=== PATIENT | female | born 1995 | race Caucasian/White ===

== ENCOUNTER 2016-06-16 15:57 | Emergency (ER) | payer BC, MEDICAID ==
[2016-06-16 16:04] VITALS: BP 113/74
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
== END 2016-06-16 17:31 | disposition home or self-care (01) ==
LOC: DL.ED 15:57
DX: J06.9 Acute upper respiratory infection, unspecified (principal); F17.210 Nicotine dependence, cigarettes, uncomplicated; Z88.1 Allergy status to other antibiotic agents; Z79.899 Other long term (current) drug therapy
CPT/HCPCS: 80305; 81001; 87081; 87430; 87804; 99283

== ENCOUNTER 2016-06-19 20:19 | Emergency (ER) | payer BC, MEDICAID ==
[2016-06-19 20:51] VITALS: BP 115/63
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
[2016-06-19] MEDS ORDERED: Polymyxin B/Trimethoprim 10 ML Bottle ONE (22:14)
[2016-06-19] MEDS ORDERED: Polymyxin B/Trimethoprim 10 ML Bottle EYERT ONE (22:14)
== END 2016-06-19 22:17 | disposition home or self-care (01) ==
LOC: DL.ED 20:19
DX: H10.31 Unspecified acute conjunctivitis, right eye (principal); Z98.890 Other specified postprocedural states; Z87.01 Personal history of pneumonia (recurrent); Z87.440 Personal history of urinary (tract) infections; Z88.1 Allergy status to other antibiotic agents
CPT/HCPCS: 99282; A9270

== ENCOUNTER 2016-10-02 16:05 | Inpatient (IN) | payer MEDICAID ==
[2016-10-02] MEDS ORDERED: Lactated Ringers 500 ML IV ONE (17:40)
[2016-10-02] MEDS ORDERED: Carboprost Tromethamine 250 MCG/1 ML Amp IM PRN (17:40)
[2016-10-02] MEDS ORDERED: Sodium Chloride 0.9% 10 ML Syringe FLUSH PRN (17:40)
[2016-10-02] MEDS ORDERED: Ondansetron 4 MG/2 ML SDV IV PRN (17:40)
[2016-10-02] MEDS ORDERED: Lidocaine 1% 30 ML SDV INJECT PRN (17:40)
[2016-10-02] MEDS ORDERED: Methylergonovine 0.2 MG/1 ML Amp IM PRN (17:40)
[2016-10-02] MEDS ORDERED: Misoprostol 400 MCG (4 X 100 MCG TAB) RECTAL PRN (17:40)
[2016-10-02] MEDS ORDERED: Oxytocin/Normal Saline 30 UNIT/500 ML BAG IV SCH (18:00)
[2016-10-02] MEDS: Lactated Ringers 1,000 ML IV SCH ×3 (19:43→22:16)
[2016-10-02] MEDS ORDERED: fentaNYL 100 MCG/2 ML SDV ONE (20:16)
[2016-10-02] MEDS ORDERED: ceFAZolin 2 GM in Premix Bag 1 BAG IV PRN (20:23)
--- NOTE | 2016-10-02 21:05 | PCM.PRNOTE ---
- Free Text/Narrative Note: Called to provide labor pain relief via intrathecal for this patient. WBC was 16.7 and temp was 99.6, so antibiotics (2 gms ancef I.V.) given as precaution prior to starting intrathecal. After consent signed and monitors on, proceeded. With patient in sitting position, sterile prep/drape. Skin wheal at L3-4 with 1% lidocaine. LP X 1 at L3-4 with 24 g pencan spinal needle via 20 gauge introducer. Positive, clear, free flowing CSF, no heme, no paresthesia. Then 6mg MPF hyperbaric 0.75% spinal marcaine, 20 mcg sufenta, 30 mcg fentanyl, 0.4ml preservative free normal saline and epi wash given intrathecally. Pt supine after. Maternal B/P and FHT's stable after. Block to around T-6, and patient reported pain relief with subsequent contractions.
[2016-10-03] MEDS ORDERED: fentaNYL 100 MCG/2 ML SDV IVPUSH ONE (00:21)
[2016-10-03] MEDS ORDERED: fentaNYL 100 MCG/2 ML SDV ONE (00:27)
[2016-10-03] MEDS ORDERED: Sodium Chloride 0.9% 10 ML Syringe FLUSH PRN (03:03)
[2016-10-03] MEDS ORDERED: Benzocaine/Menthol 20%-0.5% Spray 56 GM Canister TOP PRN (03:03)
[2016-10-03] MEDS ORDERED: Oxytocin 10 Units/1 ML SDV IM PRN (03:03)
[2016-10-03] MEDS ORDERED: Simethicone 80 MG Tab.Chew PO PRN (03:03)
[2016-10-03] MEDS ORDERED: Zolpidem 5 MG Tab PO PRN (03:03)
[2016-10-03] MEDS: Ibuprofen 800 MG Tab PO PRN ×3 (03:23→22:24)
[2016-10-03] MEDS: Docusate Sodium 100 MG Cap PO PRN ×2 (10:05→19:22)
[2016-10-03] MEDS: Prenatal Multivitamin with Calcium/Folic Acid/Iron Tab PO SCH (10:05)
--- NOTE | 2016-10-03 10:24 | OBOUT ---
DATE: 10/02/2016 DATE AND TIME OF NST: 1710 to 1730 hours. REASON FOR NST: 1. Intrauterine at 40 and 3/7th weeks, confirmed with 22 and 2/7th week ultrasound. 2. Active labor. 3. Rh negative. 4. GBS negative. 5. G2, P0-0-1-0. NST INTERPRETATION: During this time period, heart tone baseline is approximately 120, and there are at least two 15 x 15 beat per minute accelerations, making this strip reactive. It is also noted to be reassuring. Tocometer reveals potential of 6-7 contractions felt by patient. ASSESSMENT: 1. Non-stress test-reactive and reassuring. 2. Tocometer with contractions. PLAN: For admit history and physical details, please see Epic notes, which were done today as well as physical done in the clinic. Essentially, she was sent over for a nonstress test, was describing some contractions, now increasing in frequency and intensity to the point that they are coming every 2-3 minutes, felt in the lower abdomen and back, worsening over time. Nothing seems to make them better. She was subsequently evaluated in the clinic, found to be 2-1/2 to 3 cm, and after serial evaluation around this NST time was found to be 4-5 cm, 80% effaced, -1 station, vertex suspected with bulging bag of water. Artificial rupture of membranes done after discussion with the patient yielding copious amounts of clear fluid. We will continue to follow clinically and closely. For the history and physical records were called for, reviewed and supplemented by patient history, and review of systems was fully reviewed upon admission and felt to be otherwise noncontributory. Please see nurse's intake form for further details. [facility] /[id number]
--- NOTE | 2016-10-03 10:39 | PN ---
DATE: 10/02/2016 SUBJECTIVE: Patient is now status post intrathecal. She has been feeling some of her contractions occasionally. Pitocin was started as she was spacing out with her contractions after intrathecal. OBJECTIVE: heart tones in the 120s-130s range. Acceleration noted after vaginal exam. Tocometer reveals contractions every 2-4 minutes apart. Vaginal exam reveals her to be 7 cm, 100% effaced, 0 station, vertex suspected, with IUPC placed after discussion with the patient. ASSESSMENT/PLAN: Protracted disorder of dilation, now status post Pitocin augmentation and now with intrauterine pressure catheter to help monitor for sufficient enough contractions. The patient understands and agrees with the above treatment. PLAN: We will continue to follow clinically and closely. [facility] /[id number]
--- NOTE | 2016-10-03 10:54 | DEL ---
DATE: 10/03/2016 PREOPERATIVE DIAGNOSES: 1. Intrauterine 40 and 4/7 weeks confirmed with 22 and 2/7th weeks' ultrasound. 2. Active labor upon admission. 3. Rh negative. 4. Group B Streptococcus negative. 5. 2, para 0-0-0-1. 6. Protracted disorder dilation, requiring Pitocin and IUPC. 7. Repetitive variables and decelerations in the second stage of labor. POSTOPERATIVE DIAGNOSES: 1. Intrauterine 40 and 4/7 weeks confirmed with 22 and 2/7th weeks' ultrasound - delivered. 2. Active labor upon admission. 3. Rh negative. 4. Group B Streptococcus negative. 5. 2, para 0-0-0-1. 6. Protracted disorder dilation, requiring Pitocin IUPC. 7. Repetitive variables and decelerations in the second stage of labor. 8. Second degree perineal laceration - repaired. 9. Nuchal cord x1 reduced bluntly with delivery. 10.Meconium noted at delivery - thick. PROCEDURE PERFORMED: NST, artificial rupture of membranes, Pitocin, and IUPC on 10/02/2016, with continued Pitocin into 10/03/2016, when vacuum-assisted vaginal delivery was performed. Second-degree perineal laceration - repaired. ANESTHESIA/ANALGESIA: The patient did receive an intrathecal in the first stage of labor. She received 1% lidocaine without epinephrine, approximately 8 mL, for local with good anesthetic results. ESTIMATED BLOOD LOSS: 300 mL. FINDINGS: 1. Male, scores pending with weight 7 pounds 15 ounces. 2. Second-degree perineal laceration - repaired. 3. Nuchal cord x1, reduced bluntly with delivery. 4. Meconium noted at delivery and noted to be thick. SUMMER OF EVENTS: The patient is a 21-year-old, G2, P-0-0-1-0, intrauterine at 40 and 3/7th weeks on date of admission. As she was in active labor, underwent artificial rupture membranes and had protracted disorder dilation requiring Pitocin and IUPC placement. She received an intrathecal in the first stage of labor. She subsequently progressed into the second stage of labor, was having the urge to push and pain with contractions. She started pushing with contraction. During this time of period, there were some repetitive and variable decelerations. The patient was requesting availability. Due to concerns of status, OR crew and Dr. Daniel were called in to be present for this, as well as Dr. Daniel to be present for baby if there are any concerns. Subsequently, the patient continued to push with her contractions, further descent was noted. After approximately 2 hours of pushing, the patient was noting some fatigue as well as repetitive variable and decelerations were noted. Subsequently, discussion ensued in regard to using Kiwi vacuum. I did discuss with her and her male partner and her mother risks, benefits, alternative of complications with the use of Kiwi vacuum. They understood and agreed and wished to proceed. Verbal consent was obtained. Subsequently with the next episode of pushing with vertex seen splitting the labia, Kiwi vacuum was applied. When the patient was not pushing and when she was not having contractions, suction was let down to the yellow zone. When she was pushing with contractions, it was pumped to the green and with gentle pulling pressure while the patient was pushing with contractions, further descent was noted. A few more contractions thereafter, vertex was delivered. Vacuum was disengaged. Nuchal cord x1 was noted and reduced bluntly with CRISTO presentation. The anterior and posterior shoulder as well as the rest of the delivered thereafter without difficulty. Vigorous cry was noted with thick meconium noted right after delivery of the . Mouth and nares were suctioned. Cord was doubly clamped cut, and infant was brought over to team. Then, approximately 10 mL of cord blood was obtained for labs. Placenta then delivered with gentle cord traction and fundal massage within 5 to 10 minutes. Perineum, vagina, and perirectal areas were then examined, noted to have a second-degree perineal laceration that was anesthetized and repaired in the usual fashion using 3-0 Vicryl. Bilateral periurethral abrasions, nonbleeding, non-repaired after discussion with the patient, were noted. Mother and are currently stable at time of dictation. [facility] /[id number]
--- NOTE | 2016-10-03 12:59 | PCM.POSTAN ---
POST ANESTHESIA ASSESSMENT - MENTAL STATUS Mental Status: alert - VITAL SIGNS Pulse Rate: 81 Resp Rate: 16 Blood Pressure: 107/55 Temperature: 36.8 C - RESPIRATORY Respiratory Status: respiratory rate WNL - CARDIOVASCULAR CV Status: pulse rate WNL - GASTROINTESTINAL GI Status: no symptoms - PAIN Pain Score: 0 - POST OP HYDRATION Hydration Status: adequate & stable - OBSERVATIONS Free Text/Narrative:: Pt without c/o. No c/o PONV, no c/o PDPH. Full motor and sensory return. No post anesthesia complications noted.
[2016-10-03] MEDS ORDERED: fentaNYL 100 MCG/2 ML SDV ITHECAL ONE (13:14)
[2016-10-03] MEDS: Acetaminophen 325 MG Tab PO PRN (19:23)
[2016-10-04] MEDS: Prenatal Multivitamin with Calcium/Folic Acid/Iron Tab PO SCH (09:06)
[2016-10-04] MEDS: Ferrous Sulfate 325 MG Tab PO SCH (09:06)
[2016-10-04] MEDS: Ibuprofen 800 MG Tab PO PRN ×2 (09:06→18:06)
[2016-10-04] MEDS: Docusate Sodium 100 MG Cap PO PRN ×2 (09:06→21:14)
--- NOTE | 2016-10-04 09:27 | PN ---
DATE: 10/04/2016 day #1, status post vacuum-assisted vaginal delivery with second- degree perineal laceration - repaired. SUBJECTIVE: The patient is tolerating p.o., ambulating, urinating, passing flatus. OBJECTIVE: Vital Signs: Updated and listed in [employer]. No immediate concerns were noted. Lungs: Clear to auscultation bilaterally. Heart: S1 and S2. Regular rate and rhythm. Abdomen: Firm uterus +1 above umbilicus. Extremities: Trace pedal edema. No calf pain. Pending is a CBC. ASSESSMENT AND PLAN: day #1, status post vacuum-assisted vaginal delivery with second-degree perineal laceration - repaired. We will continue to follow clinically and closely. Possible discharge tomorrow discussed with the patient. She understands and agrees with the above treatment plan. [facility] /[id number]
[2016-10-04 20:34] VITALS: BP 111/57
[2016-10-04] MEDS: Acetaminophen 325 MG Tab PO PRN (21:14)
[2016-10-05] MEDS: Ibuprofen 800 MG Tab PO PRN (05:42)
[2016-10-05] MEDS: Acetaminophen 325 MG Tab PO PRN (11:15)
[2016-10-05] MEDS: Prenatal Multivitamin with Calcium/Folic Acid/Iron Tab PO SCH (11:15)
[2016-10-05] MEDS: Docusate Sodium 100 MG Cap PO PRN (11:16)
[2016-10-05] MEDS: Ferrous Sulfate 325 MG Tab PO SCH (11:16)
--- NOTE | 2016-10-06 09:54 | DISCH ---
ADMIT DIAGNOSES: 1. Intrauterine 40 and 3/7th weeks confirmed with 22 and 2/7th weeks' ultrasound. 2. Active labor. 3. Rh negative. 4. Group B Streptococcus negative. 5. 2, para 0-0-1-0. 6. Leukocytosis. DISCHARGE DIAGNOSES: 1. Intrauterine 40 and 4/7th weeks confirmed with 22 and 2/7th weeks' ultrasound-delivered. 2. Active labor. 3. Rh negative. 4. Group B Streptococcus negative. 5. 2, para 0-0-1-0. 6. Leukocytosis-resolved. 7. Protracted disorder dilation, requiring Pitocin and IUPC. 8. Repetitive variables and decelerations in the second stage of labor. 9. Second-degree perineal laceration-repaired. 10.Nuchal cord x1 reduced bluntly with delivery. 11.Meconium noted at delivery. 12. thrombocytopenia-resolved. 13.Anemia of acute blood loss, hemoglobin dropping from 11 down to 8.2 post delivery. PROCEDURE PERFORMED: NST, artificial rupture of membranes, Pitocin and IUPC on 10/02/2016, followed by vacuum-assisted vaginal delivery with second-degree perineal laceration repaired on 10/03/2016. Procedure performed by Mike Garcia MD. HISTORY OF PRESENT ILLNESS: Please see H and P. SUMMARY OF HOSPITAL COURSE: The patient was admitted on the above date with the above diagnoses, underwent above procedures. Had a protracted disorder dilation requiring Pitocin and IUPC. Found to be in the second stage of labor, had repetitive variables and decelerations and had been pushing for approximately 2 hours. Subsequently, vacuum-assisted vaginal delivery was done yielding a male with scores of 7 and 8, weighing 7 pounds 15 ounces with thick meconium noted at delivery with second-degree perineal laceration that was repaired. day #1, please see progress note. Postoperative day #2, date of discharge, the patient was tolerating p.o., ambulating, urinating, passing flatus, and requesting discharge. PHYSICAL EXAMINATION: Vital Signs: Last set of vitals updated and listed in the chart; temperature 97.6, heart rate 85, blood pressure 111/57, respiratory rate 16. Appearance: Wakes appropriately. Lungs: Clear to auscultation bilaterally. Heart: S1 and S2. Regular rate and rhythm. Abdomen: Firm uterus +1 below the umbilicus. Trace pedal edema. No calf pain. LABORATORY DATA: White cell count 8.5, hemoglobin 8.6, and platelets 158,000. CONDITION ON DISCHARGE COMPARED TO CONDITION ON ADMISSION: Improved. DISCHARGE INSTRUCTIONS: 1. Diet: As tolerated. 2. Activity: No lifting more than 10 to 20 pounds. No sit-ups, straining, and pelvic rest for next 6 weeks with immediate return to fertility discussed with the patient. 3. Reasons to return or go to the emergency room were discussed with the patient in detail including, but not limited to, temperature greater than 100.4, foul-smelling discharge, red, hot, tender breasts or increased vaginal bleeding. DISCHARGE MEDICATIONS: 1. [id number] Tylenol or ibuprofen for pain. 2. Iron sulfate 325 b.i.d. x6 weeks. FOLLOWUP: Follow up 6 weeks for visit. The patient understands and agrees with the above treatment plan. I did discuss with the patient the importance of followup and ramifications of not doing so and as well as reasons to return or go to the emergency in regard to her . [facility] /[id number]
== END 2016-10-05 11:45 | disposition home or self-care (01) | DRG 775 ==
LOC: DL.OBCHECK 16:05 → DL.OB 17:42 → UNDOADMOB 17:44 → DL.OB 17:44 → OBSVTOIN 10-03 02:34
PROVIDERS: ADMIT Family Medicine; ATTEND Family Medicine
PROC: 10D07Z6 Extraction of Products of Conception, Vacuum, Via Natural or Artificial Opening (ICD-10-PCS; principal; 2016-10-03)
PROC: 0KQM0ZZ Repair Perineum Muscle, Open Approach (ICD-10-PCS; 2016-10-03)
PROC: 4A1H7CZ Monitoring of Products of Conception, Cardiac Rate, Via Natural or Artificial Opening (ICD-10-PCS; 2016-10-03)
PROC: 3E033VJ Introduction of Other Hormone into Peripheral Vein, Percutaneous Approach (ICD-10-PCS; 2016-10-03)
DX: O76 Abnormality in fetal heart rate and rhythm complicating labor and delivery (principal); O66.5 Attempted application of vacuum extractor and forceps; O69.1XX0 Labor and delivery complicated by cord around neck, with compression, not applicable or unspecified; O77.0 Labor and delivery complicated by meconium in amniotic fluid; Z3A.40 40 weeks gestation of pregnancy; Z37.0 Single live birth
CPT/HCPCS: 01967; 36415; 51702; 85027; 85461; 86850; 86900; 86901; A9270-GY; J0690; J2405; J2590; J2790; J3010; J7120

== ENCOUNTER 2017-05-23 06:31 | Day surgery (SDC) | payer MEDICAID ==
[~2017-05-23 06:31] MED LIST: Dextrose 5%-0.45% NaCl 1,000 ML IV SCH; Midazolam 1 MG/ML 2 ML SDV ONE; Sodium Chloride 0.9% 10 ML Syringe FLUSH PRN; fentaNYL 100 MCG/2 ML SDV ONE
[2017-05-23] MEDS ORDERED: Midazolam 1 MG/ML 2 ML SDV IV ONE ×3 (06:32→06:58)
[2017-05-23] MEDS ORDERED: fentaNYL 100 MCG/2 ML SDV IV ONE ×3 (06:32→06:56)
--- NOTE | 2017-05-23 07:26 | OR ---
DATE: 05/23/2017 PROCEDURE: Esophagogastroduodenoscopy and multiple pinch biopsies. INSTRUMENT USED: GIF-Q180 Olympus video panendoscope. PREMEDICATIONS: No oral topical anesthesia used. Fentanyl 100 mcg intravenous, Versed 2 mg intravenous. The procedure was done under pulse oximetry, BP recording, and monitoring analyst. INDICATION: The patient with persistent abdominal pain and diarrhea, unexplained, and not responsive to medical measures. Esophagogastroduodenoscopy is performed for detection of any active erosive lesions, Carter's esophagus and/or malignancy also under consideration, H. pylori status to be determined, small bowel biopsies to be obtained for celiac disease, endoscopic hemostasis therapy if needed. DESCRIPTION OF PROCEDURE: The scope was passed with ease. Adequate visualization of the esophagus was made from proximal to distal areas. No upper esophageal lesions identified. No distal esophageal stricture. No uphill or downhill esophageal varices. No Uyen-Dominguez tear. No evidence of erosive esophagitis by [place] criteria. No esophageal polyp or tumor mass identified. Z-line was seen at around 40 cm distal to the oral verge, configuration consistent with grade 1 by ZAP classification. No proximal gastric varices noted. Gastric fundus examination by retroflexion showed no polypoid lesions. No gastric ulcer, malignant mass, or vascular ectasia identified. Duodenal bulb showed no ulcer. Visualized second part of the duodenum was unremarkable. Multiple pinch biopsies, 4 in number were taken from different areas of the second part of the duodenum and tissues were also obtained from the duodenal bulb at 9 and 12 o'clock positions and sent for any histopathologic evidence of celiac disease. Multiple pinch biopsies were taken from the gastric antrum and proximal body and sent for PyloriTek test for H. pylori and histopathology. No bleeding was noted from any of the visualized areas at the completion of examination. Photographs were taken of the duodenal bulb, gastric antrum, fundus, and distal esophagus. IMPRESSION: Normal study. The patient tolerated the procedure well. [facility] /[id number]
[2017-05-23 09:04] VITALS: BP 99/57
== END 2017-05-23 08:50 | disposition home or self-care (01) ==
LOC: DL.ENDO 06:31
PROVIDERS: ATTEND Internal Medicine Gastroenterology
DX: R10.9 Unspecified abdominal pain (principal); R19.7 Diarrhea, unspecified; Z88.1 Allergy status to other antibiotic agents; F17.210 Nicotine dependence, cigarettes, uncomplicated
CPT/HCPCS: 43239; 87077; J2250; J3010; J7042

== ENCOUNTER 2018-05-12 12:55 | Emergency (ER) | payer MEDICAID ==
[2018-05-12] MEDS ORDERED: Metoclopramide 10 MG Tab PO ONE (13:37)
[2018-05-12] MEDS ORDERED: diphenhydrAMINE 50 MG Cap PO ONE (13:37)
[2018-05-12 13:46] VITALS: BP 100/63
--- NOTE | 2018-05-12 14:06 | EDM.PDOC ---
Scribed by Glenys Perdomo 05/12/18 [id number] for Penelope Delgado NP ED HPI GENERAL MEDICAL PROBLEM - General Chief Complaint: Headache Stated Complaint: 16 WKS,HEADACHE Time Seen by Provider: 05/12/18 13:16 Source of Information: Reports: Patient, RN, RN Notes Reviewed History Limitations: Reports: No Limitations - History of Present Illness INITIAL COMMENTS - FREE TEXT/NARRATIVE: Patient presents to ER with complaint of headache for past 24 hours. She is 16 weeks . She also states she went to the bathroom today and when wiped she had faint pink mucous from vagina. She has had cramps since then. Rates her headache as an 8/10. She has had chills, diarrhea, nausea, sore throat last week but no sore throat now. No fever or vomiting. Onset: Today Duration: Getting Worse Location: Reports: Head Quality: Reports: Ache Severity: Moderate Improves with: Reports: None Worsens with: Reports: None Associated Symptoms: Reports: No Other Symptoms Headache Pain Score (Numeric/FACES): 8 - Related Data Allergies Allergy/AdvReac Type Severity Reaction Status Date / Time amoxicillin Allergy Rash Verified 05/12/18 13:05 Home Meds: Home Meds Acetaminophen [Tylenol] 500 mg PO ASDIRECTED PRN 02/16/16 [History] Vit No.129/Iron/FA [ One Daily Tablet] 1 tab PO DAILY 07/17/16 [History] Past Medical History - Past Health History Medical/Surgical History: Denies Medical/Surgical History HEENT History: Reports: None Cardiovascular History: Reports: None Respiratory History: Reports: Pneumonia, Recurrent, Other (See Below) Other Respiratory History: has had pneumonia Gastrointestinal History: Reports: Chronic Diarrhea Genitourinary History: Reports: Renal Calculus, UTI, Recurrent, Other (See Below ) Other Genitourinary History: NEPHROLITHIASIS 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 No sequelae. Psychiatric History: Reports: Depression Endocrine/Metabolic History: Reports: None Hematologic History: Reports: None, Other (See Below) Other Hematologic History: Rh negative. Immunologic History: Reports: None Oncologic (Cancer) History: Reports: None Dermatologic History: Reports: None - Infectious Disease History Infectious Disease History: Reports: Chicken Pox - Past Surgical History Head Surgeries/Procedures: Reports: None HEENT Surgical History: Reports: Adenoidectomy, Tonsillectomy, Other (See Below) Other HEENT Surgeries/Procedures: Facial surgery 18 years ago after being kicked in the face by a horse. Cardiovascular Surgical History: Reports: None Respiratory Surgical History: Reports: None GI Surgical History: Reports: None Female Surgical History: Reports: None Musculoskeletal Surgical History: Reports: Other (See Below) Other Musculoskeletal Surgeries/Procedures:: kicked in face as a child some type of reconstruction surgery done, pt uncertain Social & Family History - Family History Family Medical History: Noncontributory - Tobacco Use Smoking Status *Q: Current Every Day Smoker Years of Tobacco use: 6 Packs/Tins Daily: 1 - Caffeine Use Caffeine Use: Reports: Soda Caffeine Use Comment: 1CAN DAILY - Recreational Drug Use Recreational Drug Use: No - Sexual History Sexual History: Reports: Sexually Active - Living Situation & Occupation Living situation: Reports: with Family Occupation: Student ED ROS GENERAL - Review of Systems Review Of Systems: ROS reveals no pertinent complaints other than HPI. - Physical Exam Exam: See Below Exam Limited By: No Limitations General Appearance: Alert, WD/WN, No Apparent Distress Eye Exam: Bilateral Eye: EOMI, Normal Inspection, PERRL Ears: Normal External Exam, Normal Canal, Hearing Grossly Normal, Normal TMs Nose: Normal Inspection, Normal Mucosa, No Blood Throat/Mouth: Normal Inspection, Normal Lips, Normal Teeth, Normal Gums, Normal Oropharynx, Normal Voice, No Airway Compromise Head Exam: Atraumatic, Normocephalic Neck: Normal Inspection, Supple, Non-Tender, Full Range of Motion Respiratory/Chest: No Respiratory Distress, Lungs Clear, Normal Breath Sounds, No Accessory Muscle Use, Chest Non-Tender Cardiovascular: Normal Peripheral Pulses, Regular Rate, Rhythm, No Edema, No Gallop, No JVD, No Murmur, No Rub GI/Abdominal: Tender (Female) Exam: Deferred Rectal (Female) Exam: Deferred Neuro Exam (Abbreviated): Alert, Oriented, CN II-XII Intact, Normal Cognition, Normal Gait, Normal Reflexes, No Motor/Sensory Deficits Back Exam: Normal Inspection, Full Range of Motion, NT Extremities: Normal Inspection, Normal Range of Motion, Non-Tender, No Pedal Edema, Normal Capillary Refill Psychiatric: Flat Affect Skin Exam: Warm, Dry, Intact, Normal Color, No Rash Course - Vital Signs Last Recorded V/S: Last Vital Signs Temp 97.7 F 05/12/18 13:24 Pulse 130 H 05/12/18 13:24 Resp 16 05/12/18 13:24 BP 113/80 05/12/18 13:24 Pulse Ox 99 05/12/18 13:24 - Orders/Labs/Meds Labs: Laboratory Tests 05/12/18 Range/Units 13:00 Urine Color Yellow (YELLOW) Urine Appearance Turbid (CLEAR) Urine pH 7.5 (5.0-9.0) Ur Specific [place] 1.020 (1.005-1.030) Urine Protein Negative (NEGATIVE) Urine Glucose (UA) Negative (NEGATIVE) Urine Ketones Negative (NEGATIVE) Urine Occult Blood Trace-intact H (NEGATIVE) Urine Nitrite Negative (NEGATIVE) Urine Bilirubin Negative (NEGATIVE) Urine Urobilinogen 1.0 (0.2-1.0) mg/dL Ur Leukocyte Esterase Large H (NEGATIVE) Urine RBC 5-10 H /HPF Urine WBC >100 H (0-5/HPF) /HPF Ur Epithelial Cells Many H /HPF Urine Bacteria Many H (0-FEW/HPF) /HPF Urinalysis Comment Meds: Medications Discontinued Medications Generic Name Dose Route Start Last Admin Trade Name Freq PRN Reason Stop Dose Admin Diphenhydramine HCl 50 mg 05/12/18 13:37 Benadryl PO 05/12/18 13:38 ONETIME ONE Metoclopramide HCl 10 mg 05/12/18 13:37 Reglan PO 05/12/18 13:38 ONETIME ONE Departure - Departure Time of Disposition: 13:38 Disposition: Home, Self-Care 01 Condition: Fair Clinical Impression: BV (bacterial vaginosis) Headache Qualifiers: Headache type: unspecified Headache chronicity pattern: acute headache Intractability: not intractable Qualified Code(s): R51 - Headache UTI (urinary tract infection) Qualifiers: Urinary tract infection type: site unspecified Hematuria presence: with hematuria Qualified Code(s): N39.0 - Urinary tract infection, site not specified ; R31.9 - Hematuria, unspecified - Discharge Information *PRESCRIPTION DRUG MONITORING PROGRAM REVIEWED*: No *COPY OF PRESCRIPTION DRUG MONITORING REPORT IN PATIENT KAYLA: No Instructions: Bacterial Vaginosis, [id number], Urinary Tract Infection, Adult , [id number], General Headache Without Cause, [id number] Forms: ED Department Discharge Additional Instructions: RX: Metrondiazole, Macrobid Drink plenty of water Follow up with your primary care facility Continue to use Tylenol and Benadryl as directed for headache. I have read and agree with the documentation that has been completed regarding this visit. By signing this record, I attest that the documentation was completed in my physical presence and is an accurate record of the encounter.
== END 2018-05-12 13:47 | disposition home or self-care (01) ==
LOC: DL.ED 12:55
DX: O23.592 Infection of other part of genital tract in pregnancy, second trimester (principal); B96.89 Other specified bacterial agents as the cause of diseases classified elsewhere; O23.42 Unspecified infection of urinary tract in pregnancy, second trimester; O99.332 Smoking (tobacco) complicating pregnancy, second trimester; F17.210 Nicotine dependence, cigarettes, uncomplicated; Z88.1 Allergy status to other antibiotic agents; Z79.899 Other long term (current) drug therapy; Z3A.16 16 weeks gestation of pregnancy
CPT/HCPCS: 81001; 87086; 99284; A9270; Q0163

== ENCOUNTER 2019-03-10 09:08 | Emergency (ER) | payer MEDICAID ==
[2019-03-10 09:21] VITALS: BP 125/58; PULSE 113
--- NOTE | 2019-03-10 09:37 | EDM.PDOC ---
ED HPI GENERAL MEDICAL PROBLEM - General Chief Complaint: General Stated Complaint: THROAT HURTS/FEVER Time Seen by Provider: 03/10/19 09:25 Source of Information: Reports: Patient History Limitations: Reports: No Limitations - History of Present Illness INITIAL COMMENTS - FREE TEXT/NARRATIVE: This 23 yo female patient reports to the ED with a sore throat (started Sunday ), an intermittent fever (since Sunday up to 101) and nausea/vomiting (this morning). The patient has been taking Tylenol for temporary symptom relief. Onset Date: 03/08/19 Duration: Constant Location: Reports: Neck Quality: Reports: Ache, Burning Severity: Moderate Improves with: Reports: Medication Worsens with: Reports: None Context: Reports: Other Associated Symptoms: Reports: Cough Treatments TOILET ATTENDANT: Reports: Acetaminophen Throat Pain Score (Numeric/FACES): 10 - Related Data Allergies Allergy/AdvReac Type Severity Reaction Status Date / Time amoxicillin Allergy Rash Verified 10/16/18 19:39 Home Meds: Home Meds Acetaminophen [Tylenol] 500 mg PO ASDIRECTED PRN 02/16/16 [History] Ferrous Sulfate [Feosol] 325 mg PO BID 10/16/18 [History] Past Medical History - Past Health History Medical/Surgical History: Denies Medical/Surgical History HEENT History: Reports: Other (See Below) Cardiovascular History: Reports: None Respiratory History: Reports: Pneumonia, Recurrent, Other (See Below) Other Respiratory History: has had pneumonia Gastrointestinal History: Reports: GERD Genitourinary History: Reports: Renal Calculus, UTI, Recurrent, Other (See Below ) Other Genitourinary History: NEPHROLITHIASIS 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 09/02/16 Musculoskeletal History: Reports: None Neurological History: Reports: Brain Injury, Other (See Below) Other Neuro History: kicked by horse at age 2-3yrs. No sequelae. Psychiatric History: Reports: Depression, Emotional Problems Endocrine/Metabolic History: Reports: None Hematologic History: Reports: None, Other (See Below) Other Hematologic History: Rh negative. Immunologic History: Reports: None Oncologic (Cancer) History: Reports: None Dermatologic History: Reports: None - Infectious Disease History Infectious Disease History: Reports: Chicken Pox - Past Surgical History Head Surgeries/Procedures: Reports: None HEENT Surgical History: Reports: Adenoidectomy, Tonsillectomy, Other (See Below) Other HEENT Surgeries/Procedures: Facial surgery 18 years ago after being kicked in the face by a horse. Cardiovascular Surgical History: Reports: None Respiratory Surgical History: Reports: None GI Surgical History: Reports: None Female Surgical History: Reports: None Musculoskeletal Surgical History: Reports: Other (See Below) Other Musculoskeletal Surgeries/Procedures:: kicked in face as a child some type of reconstruction surgery done, pt uncertain Social & Family History - Family History Family Medical History: Noncontributory - Caffeine Use Caffeine Use: Reports: Soda Caffeine Use Comment: 1CAN DAILY - Sexual History Sexual History: Reports: Sexually Active - Living Situation & Occupation Living situation: Reports: with Family Occupation: Student ED ROS GENERAL - Review of Systems Review Of Systems: Comprehensive ROS is negative, except as noted in HPI. ED EXAM, GENERAL - Physical Exam Exam: See Below Exam Limited By: No Limitations General Appearance: Alert, WD/WN, Moderate Distress Eye Exam: Bilateral Eye: EOMI, Normal Inspection, PERRL Ears: Normal External Exam, Normal Canal, Hearing Grossly Normal, Normal TMs Nose: Normal Inspection, Normal Mucosa, No Blood Throat/Mouth: Normal Lips, Normal Teeth, Normal Gums, Normal Voice, No Airway Compromise, Inflammation (posterior pharynx) Head: Atraumatic, Normocephalic Neck: Normal Inspection, Supple, Non-Tender, Full Range of Motion Respiratory/Chest: No Respiratory Distress, Lungs Clear, Normal Breath Sounds, No Accessory Muscle Use, Chest Non-Tender Cardiovascular: Normal Peripheral Pulses, Regular Rate, Rhythm, No Edema, No Gallop, No JVD, No Murmur, No Rub GI/Abdominal: Normal Bowel Sounds, Soft, Non-Tender, No Organomegaly, No Distention, No Abnormal Bruit, No Mass (Female) Exam: Deferred Rectal (Female) Exam: Deferred Back Exam: Normal Inspection, Full Range of Motion, NT Extremities: Normal Inspection, Normal Range of Motion, Non-Tender, Normal Capillary Refill, No Pedal Edema Neurological: Alert, Oriented, CN II-XII Intact, Normal Cognition, Normal Gait, Normal Reflexes, No Motor/Sensory Deficits Psychiatric: Normal Affect, Normal Mood Skin Exam: Warm, Dry, Intact, Normal Color, No Rash Lymphatic: No Adenopathy Course - Vital Signs Last Recorded V/S: Last Vital Signs Temp 36.4 C 03/10/19 09:16 Pulse 113 H 03/10/19 09:16 Resp 18 03/10/19 09:16 BP 125/58 L 03/10/19 09:16 Pulse Ox 98 03/10/19 09:16 - Orders/Labs/Meds Orders: Active Orders 24 hr Category Date Time Status CULTURE STREP A CONFIRMATION [RM] Stat Lab 03/10/19 09:12 Results STREP SCRN A RAPID W CULT CONF [RM] Stat Lab 03/10/19 09:12 Received Departure - Departure Time of Disposition: 09:42 Disposition: Home, Self-Care 01 Condition: Fair Clinical Impression: URI (upper respiratory infection) Qualifiers: URI type: unspecified URI Qualified Code(s): J06.9 - Acute upper respiratory infection, unspecified - Discharge Information *PRESCRIPTION DRUG MONITORING PROGRAM REVIEWED*: Not Applicable *COPY OF PRESCRIPTION DRUG MONITORING REPORT IN PATIENT KAYLA: Not Applicable Instructions: Upper Respiratory Infection, Adult, [id number] Forms: ED Department Discharge Care Plan Goals: The patient was advised of the examination and lab results during the visit. The patient was discharged with a script for Azithromycin (250 mg) #6 to take 2 by mouth on day 1 and 1 by mouth on days 2-5. The patient was encouraged to alternate between Tylenol and ibuprofen for temporary symptom relief. If the patient has any additional symptoms or concerns, the patient should either visit her primary care facility or return to the emergency department. - My Orders Last 24 Hours: My Active Orders 03/10/19 09:12 CULTURE STREP A CONFIRMATION [RM] Stat STREP SCRN A RAPID W CULT CONF [RM] Stat - Assessment/Plan Last 24 Hours: My Active Orders 03/10/19 09:12 CULTURE STREP A CONFIRMATION [RM] Stat STREP SCRN A RAPID W CULT CONF [RM] Stat
== END 2019-03-10 09:52 | disposition home or self-care (01) ==
LOC: DL.ED 09:08
DX: J06.9 Acute upper respiratory infection, unspecified (principal); Z88.0 Allergy status to penicillin
CPT/HCPCS: 87081; 87430; 87804; 99284

== ENCOUNTER 2020-11-20 20:41 | Emergency (ER) | payer MEDICAID ==
[2020-11-20 22:29] LABS: CORONAVIRUS COVID-19 NAA NEGATIVE (NEGATIVE)
--- NOTE | 2020-11-21 00:32 | EDM.PDOC ---
ED HPI GENERAL MEDICAL PROBLEM - General Chief Complaint: ENT Problem Stated Complaint: SORE THROAT,COUGH,FEVER,CHILLS Time Seen by Provider: 11/20/20 21:40 Source of Information: Reports: Patient History Limitations: Reports: Intoxication - History of Present Illness INITIAL COMMENTS - FREE TEXT/NARRATIVE: sore throat since , cough started last night. No fever. No vomiting or diarrhea. Smoker Throat Pain Score (Numeric/FACES): 8 - Related Data Allergies Allergy/AdvReac Type Severity Reaction Status Date / Time amoxicillin Allergy Rash Verified 10/16/18 19:39 Home Meds: Home Meds Acetaminophen [Tylenol] 500 mg PO ASDIRECTED PRN 02/16/16 [History] Ferrous Sulfate [Feosol] 325 mg PO BID 10/16/18 [History] Past Medical History - Past Health History Medical/Surgical History: Denies Medical/Surgical History HEENT History: Reports: Other (See Below) Cardiovascular History: Reports: None Respiratory History: Reports: Pneumonia, Recurrent, Other (See Below) Other Respiratory History: has had pneumonia Gastrointestinal History: Reports: GERD Genitourinary History: Reports: Renal Calculus, UTI, Recurrent, Other (See Below) Other Genitourinary History: NEPHROLITHIASIS AUTOPSY ASSISTANT History: Reports: , Spontaneous Other AUTOPSY ASSISTANT History: miscarriage in September 2015, SAB 09/02/17. 09/02/16 Musculoskeletal History: Reports: None Neurological History: Reports: Brain Injury, Other (See Below) Other Neuro History: kicked by horse at age 2-3yrs. No sequelae. Psychiatric History: Reports: Depression, Emotional Problems Endocrine/Metabolic History: Reports: None Hematologic History: Reports: None, Other (See Below) Other Hematologic History: Rh negative. Immunologic History: Reports: None Oncologic (Cancer) History: Reports: None Dermatologic History: Reports: None - Infectious Disease History Infectious Disease History: Reports: Chicken Pox - Past Surgical History Head Surgeries/Procedures: Reports: None HEENT Surgical History: Reports: Adenoidectomy, Tonsillectomy, Other (See Below) Other HEENT Surgeries/Procedures: Facial surgery 18 years ago after being kicked in the face by a horse. Cardiovascular Surgical History: Reports: None Respiratory Surgical History: Reports: None GI Surgical History: Reports: None Female Surgical History: Reports: None Musculoskeletal Surgical History: Reports: Other (See Below) Other Musculoskeletal Surgeries/Procedures:: kicked in face as a child some type of reconstruction surgery done, pt uncertain Social & Family History - Family History Family Medical History: No Pertinent Family History - Tobacco Use Tobacco Use Status *Q: Current Every Day Tobacco User Years of Tobacco use: 7 Packs/Tins Daily: 0.2 Second Hand Smoke Exposure: Yes - Caffeine Use Caffeine Use: Reports: Soda Caffeine Use Comment: 1CAN DAILY - Recreational Drug Use Recreational Drug Use: No - Sexual History Sexual History: Reports: Sexually Active - Living Situation & Occupation Living situation: Reports: with Family Occupation: Student ED ROS ENT - Review of Systems Review Of Systems: Comprehensive ROS is negative, except as noted in HPI. ED EXAM, ENT - Physical Exam Exam: See Below Exam Limited By: No Limitations General Appearance: Alert, No Apparent Distress Eye Exam: Bilateral Eye: EOMI Ears: Normal External Exam, Hearing Grossly Normal, Normal TMs Nose: Normal Inspection Mouth/Throat: Normal Inspection, Normal Gums, Tonsillar Exudates Head: Atraumatic, Normocephalic Neck: Normal Inspection, Full Range of Motion Respiratory/Chest: No Respiratory Distress, Lungs Clear, Normal Breath Sounds Cardiovascular: Normal Peripheral Pulses, Regular Rate, Rhythm GI/Abdominal: Normal Bowel Sounds, Soft Back: Normal Inspection Extremities: Normal Inspection, Normal Range of Motion Neurological: Alert, Oriented, Normal Cognition Skin: Warm, Dry, Intact, Normal Color Course - Vital Signs Last Recorded V/S: Last Vital Signs Temp 97.5 F 11/21/20 00:38 Pulse 106 H 11/21/20 00:38 Resp 18 11/21/20 00:38 BP 126/78 11/21/20 00:38 Pulse Ox 100 11/21/20 00:38 - Orders/Labs/Meds Labs: Laboratory Tests 11/20/20 Range/Units 21:37 Influenza Type A RNA Negative (NEGATIVE) Influenza Type B RNA Negative (NEGATIVE) SARS-CoV-2 RNA (BEN) Negative (NEGATIVE) Departure - Departure Time of Disposition: 00:28 Disposition: Home, Self-Care 01 Condition: Good Clinical Impression: Pharyngitis Qualifiers: Pharyngitis/tonsillitis etiology: unspecified etiology Qualified Code(s): J02.9 - Acute pharyngitis, unspecified - Discharge Information *PRESCRIPTION DRUG MONITORING PROGRAM REVIEWED*: No *COPY OF PRESCRIPTION DRUG MONITORING REPORT IN PATIENT KAYLA: No Instructions: Sore Throat, [id number] Referrals: PCP,None [Primary Care Provider] - Forms: ED Department Discharge Additional Instructions: encourage fluids alternate tylenol and ibuprofen every 4 hours as needed for fever/ pain chloraseptic throat spray as needed salt water gargles as needed follow up if symptoms worsen Sepsis Event Note (ED) - Evaluation Sepsis Screening Result: No Definite Risk
[2020-11-21 00:39] VITALS: BP 126/78; PULSE 106
== END 2020-11-21 00:38 | disposition home or self-care (01) ==
LOC: DL.ED 20:41
DX: J02.9 Acute pharyngitis, unspecified (principal); Z72.0 Tobacco use; Z88.0 Allergy status to penicillin; Z20.822 Contact with and (suspected) exposure to COVID-19
CPT/HCPCS: 0240U; 87081; 87430; 99283

== ENCOUNTER 2021-08-16 20:58 | Emergency (ER) | payer MEDICAID | END 2021-08-16 22:45 | disposition left against medical advice (07) | LOC: DL.ED 20:58 | DX: Z53.21 Procedure and treatment not carried out due to patient leaving prior to being seen by health care provider (principal) ==

== ENCOUNTER 2021-08-22 05:25 | Day surgery (SDC) | payer MEDICAID ==
[~2021-08-22 05:25] MED LIST changes: -Dextrose 5%-0.45% NaCl 1,000 ML IV SCH; -Midazolam 1 MG/ML 2 ML SDV ONE; -Sodium Chloride 0.9% 10 ML Syringe FLUSH PRN; +Sodium Chloride 0.9% 10 ML Syringe FLUSH SCH; -fentaNYL 100 MCG/2 ML SDV ONE
[2021-08-22] MEDS ORDERED: Midazolam 1 MG/ML 2 ML SDV IV ONE ×6 (05:26→06:40)
[2021-08-22] MEDS ORDERED: fentaNYL 100 MCG/2 ML SDV IV ONE ×3 (05:26→06:32)
[2021-08-22] MEDS ORDERED: Midazolam 1 MG/ML 2 ML SDV ONE (05:57)
[2021-08-22] MEDS ORDERED: fentaNYL 100 MCG/2 ML SDV ONE (05:57)
[2021-08-22] MEDS ORDERED: Dextrose 5%-0.45% NaCl 1,000 ML IV SCH (06:00)
[2021-08-22] MEDS ORDERED: Sodium Chloride 0.9% 10 ML Syringe FLUSH PRN (06:00)
[2021-08-22 08:51] VITALS: BP 105/63; PULSE 88
== END 2021-08-22 08:58 | disposition home or self-care (01) ==
LOC: DL.ENDO 05:25
PROVIDERS: ATTEND Internal Medicine Gastroenterology
DX: K62.5 Hemorrhage of anus and rectum (principal); E66.09 Other obesity due to excess calories; Z88.1 Allergy status to other antibiotic agents; Z68.30 Body mass index [BMI] 30.0-30.9, adult
CPT/HCPCS: J2250; J3010; J7042

== ENCOUNTER 2022-12-12 08:46 | Inpatient (IN) | payer MEDICAID ==
[~2022-12-12 08:46] MED LIST changes: +Misoprostol 25 MCG (1/4 of 100 MCG) Tab VAG PRN; -Sodium Chloride 0.9% 10 ML Syringe FLUSH SCH
[2022-12-12 09:14] LABS: APPEARANCE,URINE CLEAR (CLEAR); BILIRUBIN,URINE NEGATIVE (NEGATIVE); COLOR,URINE YELLOW (YELLOW); GLUCOSE,URINE NEGATIVE (NEGATIVE); KETONES,URINE NEGATIVE (NEGATIVE); LEUKOCYTE ESTERASE,URINE SMALL (NEGATIVE); NITRITE,URINE NEGATIVE (NEGATIVE); OCCULT BLOOD,URINE TRACE-INTACT (NEGATIVE); PROTEIN,URINE NEGATIVE (NEGATIVE); UROBILINOGEN,URINE 0.2 mg/dL (0.2-1.0)
[2022-12-12 09:18] LABS: HEMATOCRIT 33.6 % (37.0-47.0); MEAN CORPUSCULAR HEMOGLOBIN 29.7 pg (27.0-34.0); MEAN CORPUSCULAR HGB CONC 32.7 g/dL (33.0-35.0); MEAN CORPUSCULAR VOLUME 90.8 fL (80-100); RED BLOOD CELL COUNT 3.7 10^6/uL (4.2-5.4); WHITE BLOOD CELL COUNT,WBC 11.2 10^3/uL (5.0-10.0)
[2022-12-12 09:27] LABS: CREATININE,URINE RAND 70.03 mg/dL (No establ ref range); PROTEIN CREATININE RATIO,URINE 185.6 mg/g (<150.0)
[2022-12-12] MEDS ORDERED: Methylergonovine 0.2 MG/1 ML Amp IM PRN (09:27)
[2022-12-12] MEDS ORDERED: Penicillin G Potassium 5 MILLUNITS in Sodium Chloride 0.9% 100 ML IV ONE (09:27)
[2022-12-12] MEDS ORDERED: Sodium Chloride 0.9% 10 ML Syringe FLUSH PRN (09:27)
[2022-12-12] MEDS ORDERED: Tranexamic Acid 1,000 MG in Sodium Chloride 0.9% 100 ML IV PRN (09:27)
[2022-12-12] MEDS ORDERED: Lidocaine 1% 30 ML SDV INJECT ONE (09:27)
[2022-12-12] MEDS ORDERED: Acetaminophen 325 MG Tab PO PRN ×2 (09:27)
[2022-12-12] MEDS ORDERED: Ondansetron 4 MG/2 ML SDV IVPUSH PRN (09:27)
[2022-12-12] MEDS ORDERED: Misoprostol 400 MCG (4 X 100 MCG TAB) RECTAL PRN (09:27)
[2022-12-12] MEDS ORDERED: Carboprost Tromethamine 250 MCG/1 ML Amp IM PRN (09:27)
[2022-12-12] MEDS ORDERED: Lactated Ringers 1,000 ML IV ONE (09:27)
[2022-12-12] MEDS ORDERED: Oxytocin/Normal Saline 30 UNIT/500 ML BAG IV SCH ×2 (09:30)
[2022-12-12] MEDS ORDERED: Misoprostol 50 MCG (1/2 of 100 MCG) Tab VAG ONE (09:38)
[2022-12-12 09:44] LABS: ALANINE AMINOTRANSFERASE,ALT 11 U/L (14-59); ASPARTATE AMNIOTRANSFERASE,AST 20 U/L (15-37); BLOOD UREA NITROGEN,BUN 7 mg/dL (7-18); CREATININE 0.74 mg/dL (0.55-1.02); LACTATE DEHYDROGENASE,LDH 231 U/L (81-234); URIC ACID 4.6 mg/dL (2.6-6.0)
[2022-12-12 09:45] LABS: ESTIMATED GFR 114 mL/min (>=60)
[2022-12-12] MEDS: Penicillin G Potassium 3 MILLUNITS in Sodium Chloride 0.9% 100 ML IV SCH ×2 (14:12→18:05)
[2022-12-12] MEDS: Lactated Ringers 1,000 ML IV SCH ×2 (16:33→18:08)
[2022-12-12] MEDS ORDERED: fentaNYL 100 MCG/2 ML SDV ONE (17:39)
[2022-12-12] MEDS ORDERED: Bupivacaine 0.25% 10 ML SDV ONE (17:40)
[2022-12-12] MEDS ORDERED: ePHEDrine 50 MG/ML SDV IVPUSH PRN (17:50)
[2022-12-12] MEDS ORDERED: Phenylephrine HCl In 0.9% NaCl 1 MG/10 ML Syringe IVPUSH PRN (17:50)
[2022-12-12] MEDS ORDERED: Ropivacaine 200 MG in Premix Bag 1 BAG EPIDUR SCH (18:00)
[2022-12-12] MEDS ORDERED: Zolpidem 5 MG Tab PO PRN (20:10)
[2022-12-12] MEDS ORDERED: Oxytocin 10 Units/1 ML SDV IM PRN (20:10)
[2022-12-12] MEDS ORDERED: Simethicone 80 MG Tab.Chew PO PRN (20:10)
[2022-12-12] MEDS ORDERED: Witch Hazel Medicated Pads 100/Jar TOP PRN (20:10)
[2022-12-12] MEDS ORDERED: Benzocaine/Menthol 20%-0.5% Spray 78 GM Cannister TOP PRN (20:10)
[2022-12-12] MEDS: Docusate Sodium 100 MG Cap PO PRN (22:30)
[2022-12-12] MEDS: Ibuprofen 800 MG Tab PO PRN (22:30)
[2022-12-13 06:10] LABS: HEMATOCRIT 29.3 % (37.0-47.0); HEMOGLOBIN 9.4 g/dL (12.0-16.0); MEAN CORPUSCULAR HEMOGLOBIN 29.4 pg (27.0-34.0); MEAN CORPUSCULAR HGB CONC 32.1 g/dL (33.0-35.0); MEAN CORPUSCULAR VOLUME 91.6 fL (80-100); RED BLOOD CELL COUNT 3.2 10^6/uL (4.2-5.4); WHITE BLOOD CELL COUNT,WBC 13.6 10^3/uL (5.0-10.0)
[2022-12-13] MEDS: Docusate Sodium 100 MG Cap PO PRN (08:01)
[2022-12-13] MEDS: Sodium Chloride 0.9% 10 ML Syringe FLUSH SCH ×2 (08:02)
[2022-12-13] MEDS: Ibuprofen 800 MG Tab PO PRN ×2 (08:02→16:13)
[2022-12-13] MEDS ORDERED: Prenatal Multivitamin with Calcium/Folic Acid/Iron Tab PO SCH (09:00)
[2022-12-13 22:42] VITALS: BP 111/72; PULSE 79
== END 2022-12-13 21:30 | disposition home or self-care (01) | DRG 806 ==
LOC: DL.OBCHECK 08:46 → DL.OB 09:23 → OBSVTOIN 19:48
PROVIDERS: ADMIT Family Medicine; ATTEND Family Medicine
PROC: 10E0XZZ Delivery of Products of Conception, External Approach (ICD-10-PCS; principal; 2022-12-12)
PROC: 10907ZC Drainage of Amniotic Fluid, Therapeutic from Products of Conception, Via Natural or Artificial Opening (ICD-10-PCS; 2022-12-12)
PROC: 3E0P7VZ Introduction of Hormone into Female Reproductive, Via Natural or Artificial Opening (ICD-10-PCS; 2022-12-12)
PROC: 3E0R3BZ Introduction of Anesthetic Agent into Spinal Canal, Percutaneous Approach (ICD-10-PCS; 2022-12-12)
PROC: 00HU33Z Insertion of Infusion Device into Spinal Canal, Percutaneous Approach (ICD-10-PCS; 2022-12-12)
PROC: 3E033VJ Introduction of Other Hormone into Peripheral Vein, Percutaneous Approach (ICD-10-PCS; 2022-12-12)
DX: O13.4 Gestational [pregnancy-induced] hypertension without significant proteinuria, complicating childbirth (principal); O99.12 Other diseases of the blood and blood-forming organs and certain disorders involving the immune mechanism complicating childbirth; O99.824 Streptococcus B carrier state complicating childbirth; F32.A Depression, unspecified; O62.2 Other uterine inertia; O71.82 Other specified trauma to perineum and vulva; O26.893 Other specified pregnancy related conditions, third trimester; D69.6 Thrombocytopenia, unspecified; O69.9XX0 Labor and delivery complicated by cord complication, unspecified, not applicable or unspecified; O99.344 Other mental disorders complicating childbirth; Z3A.38 38 weeks gestation of pregnancy; Z37.0 Single live birth
CPT/HCPCS: 01967; 36415; 59025; 59409; 81003; 82565; 82570; 83615; 84156; 84450; 84460; 84520; 84550; 85027; 85461; 86850; 86870; 86900; 86901; A9270-GY; J2405; J2540; J2590; J2790; J2795; J3490; J7120

== ENCOUNTER 2024-08-02 15:42 | Emergency (ER) | payer MEDICAID ==
[2024-08-02] MEDS ORDERED: Sodium Chloride 0.9% 10 ML Syringe FLUSH PRN (16:02)
[2024-08-02] MEDS: Sodium Chloride 0.9% 1,000 ML IV ONE (16:11)
[2024-08-02] MEDS: Ketorolac 30 MG/ML SDV IVPUSH ONE (16:13)
[2024-08-02 16:14] LABS: HEMATOCRIT 41.9 % (37.0-47.0); HEMOGLOBIN 14.1 g/dL (12.0-16.0); MEAN CORPUSCULAR HEMOGLOBIN 28.7 pg (27.0-34.0); MEAN CORPUSCULAR HGB CONC 33.7 g/dL (33.0-35.0); MEAN CORPUSCULAR VOLUME 85.3 fL (80-100); PLATELET COUNT,PLT 203 10^3/uL (150-450); RED BLOOD CELL COUNT 4.91 10^6/uL (4.2-5.4); WHITE BLOOD CELL COUNT,WBC 10.4 10^3/uL (5.0-10.0)
[2024-08-02 16:17] LABS: BASOPHILS PERCENT AUTO 0.4 % (0.0-1.0); EOSINOPHILS PERCENT AUTO 0.9 % (1.0-3.0); LYMPHOCYTES PERCENT AUTO 63.1 % (20.5-50.1); MONOCYTES PERCENT AUTO 7.4 % (2-8); NEUTROPHILS PERCENT AUTO 28.2 % (42.2-75.2)
[2024-08-02 16:35] LABS: AMYLASE 31 U/L (25-115); LIPASE 52 U/L (16-77)
[2024-08-02 16:37] LABS: A/G RATIO 0.9; ALBUMIN 3.5 g/dL (3.4-5.0); ANION GAP 13.8 mEq/L (7-13); BILIRUBIN TOTAL 0.8 mg/dL (0.2-1.0); BUN/CREATININE RATIO 7.7 (No establ ref range); C-REACTIVE PROTEIN 2.96 ng/dL (<=0.50); CALCIUM 8.9 mg/dL (8.5-10.1); CREATININE 1.04 mg/dL (0.55-1.02); EST CRCL DRUG DOSING (CG) 72.47 mL/min; MAGNESIUM 1.6 mg/dL (1.8-2.4); POTASSIUM,K 3.8 mmol/L (3.5-5.1); PROTEIN TOTAL,TP 7.4 g/dL (6.4-8.2)
[2024-08-02] MEDS: Acetaminophen 500 MG Tab PO ONE (16:39)
[2024-08-02 16:44] LABS: LACTIC ACID 1.3 mmol/L (0.4-2.0)
[2024-08-02 16:57] LABS: BAND PERCENT MAN 4 %; SEG NEUTROPHILS PERCENT MAN 23 % (42-75)
[2024-08-02 16:58] LABS: EOSINOPHILS PERCENT MAN 1 % (1-3); LYMPHOCYTES % ATYPICAL MANUAL 2 %; LYMPHOCYTES PERCENT MAN 59 % (20-50); MONOCYTES PERCENT MAN 11 % (2-8)
[2024-08-02] MEDS: Iopamidol 612 MG/ML 100 ML Bottle IVPUSH ONE (17:00)
[2024-08-02 17:03] LABS: APPEARANCE,URINE CLOUDY (CLEAR); BILIRUBIN,URINE NEGATIVE (NEGATIVE); COLOR,URINE YELLOW (YELLOW); GLUCOSE,URINE NEGATIVE (NEGATIVE); KETONES,URINE NEGATIVE (NEGATIVE); LEUKOCYTE ESTERASE,URINE MODERATE (NEGATIVE); NITRITE,URINE NEGATIVE (NEGATIVE); OCCULT BLOOD,URINE LARGE (NEGATIVE); PROTEIN,URINE NEGATIVE (NEGATIVE); UROBILINOGEN,URINE 0.2 mg/dL (0.2-1.0)
[2024-08-02 17:27] LABS: BACTERIA,URINE MODERATE /HPF (0-FEW/HPF); EPITHELIAL CELLS,URINE FEW /HPF (NOT SEEN); RBC,URINE 0-5 /HPF (0-5); WBC,URINE 50-75 /HPF (0-5/HPF)
[2024-08-02 17:45] VITALS: BP 115/62; PULSE 107
[2024-08-02] MEDS: cefTRIAXone 2 GM Vial IVPUSH ONE (18:17)
[2024-08-02] MEDS: Take Home: Ondansetron 4 MG Tab.DIS, 5 Tab Pack PO ONE (18:25)
== END 2024-08-02 18:43 | disposition home or self-care (01) ==
LOC: DL.ED 15:42
DX: N39.0 Urinary tract infection, site not specified (principal); B34.9 Viral infection, unspecified; Z79.899 Other long term (current) drug therapy
CPT/HCPCS: 36415; 74177; 80053; 81001; 81025; 82150; 83605; 83690; 83735; 85025; 86140; 87040; 87086; 96361; 96374; 96375; 99284; A9270; J0696; J1885; J7030; Q0162; Q9967